=== PATIENT | male | born 1985 | race Two or more races ===

== ENCOUNTER → 2024-04-02 | Outpatient (CLI) | payer BC | END | disposition home or self-care (01) | LOC: XYW 09:59 | PROVIDERS: ATTEND Internal Medicine | DX: I51.89 Other ill-defined heart diseases (principal); R60.0 Localized edema; R94.31 Abnormal electrocardiogram [ECG] [EKG]; Z82.69 Family history of other diseases of the musculoskeletal system and connective tissue | CPT/HCPCS: 93306 ==